=== PATIENT | female | born 1955 | race Caucasian/White ===

== ENCOUNTER 2024-09-12 16:29 | Outpatient (CLI) | payer MEDICARE, OTHER, SELFPAY ==
--- OUTSIDE RECORDS SUMMARY | 2024-09-12 16:48 | XMS_ITS | Patient Health Record ---
Author Organization [facility] Address [address] [place], [place] [id number] Care Team Providers Care Log Getter Name Role Phone JOSE C LESLIE Unavailable [phone] Samir Dangelo Unavailable Unavailable REINA FIELDS Unavailable [phone] REINA العلي Unavailable [phone] PHONG HARTMAN Unavailable [phone] Allergies Allergen (clinical drug ingredient) Drug/Non Drug Allergy documented on EMR Reaction Allergy Type Onset Date Status meperidine Demerol Unknown Drug Allergy Active Tape Unknown Allergy Active Reason For Referral No Information Medications Medication SIG (Take, Route, Frequency, Duration) Notes Start Date End Date Status Clotrimazole 1 % 1 application Externally Twice a day Active Betamethasone Dipropionate 0.05 % 1 application Externally Once a day Active Flovent Diskus Activ e traZODone HCl 50 MG 1 tablet at bedtime as needed Orally Once a day Active Atorvastatin Calcium 40 MG 1 tablet Orally Once a day Active Metoprolol Succinate ER 25 MG 1 tablet Orally Once a day Active Clotrimazole-Betametha sone 1-0.05 % 1 application Externally Twice a day one tube, 30g or largest available 06/15/2024 Active Clotrimazole-Betametha sone 1-0.05 % 1 application Externally Twice a day 12/30/2023 Active Encounters Encounter Location Date Provider Diagnosis [facility] [address] [place], [place] [id number] 12/30/2023 PHONG HARTMAN Tinea pedis B35.3 ; Pain in right toe(s) M79.674 and Pain in left toe(s) M79.675 [facility] [address] [place], [place] [id number] 06/15/2024 REINA SNOOK Ingrowing nail L60.0 ; Tinea pedis B35.3 ; Cellulitis of right toe L03.031 and Pain in right toe(s) M79.674 [facility] [address] [place], [place] [id number] 07/07/2024 REINA OBEDBURG Ingrowing nail L60.0 and Encounter for other specified surgical aftercare Z48.89 [facility] [address] [place], [place] [id number] 07/06/2024 REINA SNOOK Assessments Encounter Date Diagnosis (ICD Code) Assessment Notes Treatment Notes Treatment Clinical Notes Section Notes 12/30/2023 Tinea pedis (ICD-10 - B35.3) The patient was educated why and how the fungal infection evolved in their feet and the patient was given information regarding how to prevent further infection. The patient was told to keep feet dry and change socks. The patient was told to be careful with old shoes and excessive sweating. The patient was educated regarding both OTC and prescription treatments. Continue with lotrisone. 12/30/2023 Pain in right toe(s) (ICD-10 - M79.674) 06/15/2024 Tinea pedis (ICD-10 - B35.3) Tinea Pedis: Tinea pedis (athlete's foot) is a dermatologic fungal infection that typically affects the epidermis and is the most common dermatophyte infection. Tinea pedis is transmitted via direct skin contact, contaminated floors, towels and clothing/shoes and thrives in warm, moist environments. Approximately 26.5 million people are affected annually. Nearly half of these people will suffer from multiple episodes for years. Interdigital tinea pedis presents as erythematous, pruritic, scales or erosions between toes. Weiner-type tinea pedis affects the soles and medial and lateral sides of the feet and often is itchy, hyperkeratotic and flaking. Inflammatory tinea pedis is characterized by pruritic erythematous, painful vesicles or bullae most commonly on the medial foot. Treatment varies from OTC preparations to a large variety of topical and oral medications. Patient education and proper foot hygiene are important components to the successful treatment of this infection. 06/15/2024 Ingrowing nail (ICD-10 - L60.0) Matrixectomy of Nail Border: I discussed various treatment options to the patient for their toenail issue. I discussed removal of the offending nail border and chemical matrixectomy to prevent regrowth. The patient decided on permanent removal of the nail border. The consent was signed and placed in the patients chart and all questions were answered. Following skin prep, the toe was injected with 3ccs of a 1:1 mixture of 0.5% marcaine plain and 1% lidocaine plain. A digital tourniquet was applied and the offending nail border and nail matrix were removed. Three applications of 89% phenol for 30 seconds each, were applied to the nail matrix to prevent regrowth. The digital tourniquet was released and the toe was cleansed with isopropyl alcohol. A dry sterile compressive dressing was applied and the patient was given soaking instructions. The medial border of the right great toe was treated. 07/07/2024 Ingrowing nail (ICD-10 - L60.0) 07/07/2024 Encounter for other specified surgical aftercare (ICD-10 - Z48.89) 06/15/2024 Cellulitis of right toe (ICD-10 - L03.031) Infection Protocol: Patient instructed to observe foot for signs and symptoms of infection, including but not limited to: increased redness and warmth to the area, increased drainage from the area, foul odor, and/or presence of fever/chills/nause a/vomiting. If patient experiences any of the above they are to call the office immediately, if someone is not present in the office then proceed to the nearest ER. 12/30/2023 Pain in left toe(s) (ICD-10 - M79.675) 06/15/2024 Pain in right toe(s) (ICD-10 - M79.674) 07/07/2024 Other I advised the patient that no further treatment is necessary at this time. If the condition should worsen they should call the office. Plan Of Treatment No Information Insurance Providers Payer Name Payer Address Payer Phone Subscriber Number Group Number Insured Name Patient Relationship to Insured Coverage Start Date Coverage End Date Medicare Part [facility] [address] [facility] [place] [phone] [id number] Fey, Je Self - patient is the insured 3 [employer] [address] [facility] [place] [id number] Fejose e, Je Self - patient is the insured
--- OUTSIDE RECORDS SUMMARY | 2024-09-12 16:48 | XMS_ITS ---
Author Organization [facility] Address [address] [place], [place] [phone] Care Team Providers Care Independent Contractor Name Role Phone JOSE C LESLIE Unavailable [phone] Samir Dangelo Unavailable Unavailable REASON FOR VISIT *Nail surgery follow-up Encounters Encounter Location Date Provider Diagnosis [address] [id number] 06/29/2024 JOSE C LESLIE Plan Of Treatment No Information Progress Notes * Daniel WINTERSiDOB:1955 (69 yo F)Acc No.[id number]:06/29/2024 Patient: Je WEI Provider: La LESLIE :1955 A ge:68 Y S ex:Female Date:06/29/2024 Address:[address] [place] [phone] Subjective: * Chief Complaints: * 1 . *Nail surgery follow-up. * Medical History: Objective: * Vitals: Assessment: Plan: * Treatment: * Billing Information: * Visit Code: * Procedure Codes: * Electronic signature of CHRISTI LESLIE DPM on 09/12/2024 at 04:48 PM CDT Sign off status: Pending * Provider: La LESLIE Date: 06/29/2024 Generated for Kyle reyes/Aram/Kelly on: 0 09/12/2024 04:48 PM CDT
[2024-09-12 16:56] LABS: Hematocrit 48.0 % (35.0-42.0); Hemoglobin 15.7 g/dL (11.7-13.8); Mean Corpuscular HGB Conc 32.7 g/dL (32-36); Mean Corpuscular Hemoglobin 31.7 pg (27.0-31.0); Mean Corpuscular Volume 96.8 fL (78.0-102.0); Platelet Count Result 293 K/mm3 (150-420); Red Blood Count 4.96 M/mm3 (4.20-5.40); White Blood Count 9.5 K/mm3 (4.8-10.8)
[2024-09-12 17:56] LABS: Alanine Aminotransferase 34 U/L (6-35); Albumin Level 4.4 g/dL (3.5-5.1); Alkaline Phosphatase 93 U/L (38-126); Anion Gap 4 mmol/L (4-12); Aspartate Amino Transferase 34 U/L (14-36); Bilirubin,Total 0.5 mg/dL (0.2-1.3); Blood Urea Nitrogen 11 mg/dL (7-17); Calcium 9.7 mg/dL (8.4-10.2); Carbon Dioxide 31 mmol/L (22-30); Chloride 104 mmol/L (98-107); Estimated Glomerular Filt Rate > 60; Glucose 103 mg/dL (65-110); Magnesium 2.1 mg/dL (1.6-2.3); Osmolality Calculated 287 mOsm/kg (285-295); Potassium 5.0 mmol/L (3.4-5.0); Sodium 139 mmol/L (137-145); Total Protein 7.0 g/dL (6.3-8.2)
[2024-09-12 18:05] LABS: NT Pro B Type Natriuretic Pept 222 pg/mL (19.9-100)
[2024-09-12 18:13] LABS: Free T4 Free Thyroxine. 1.62 ng/dL (0.78-2.19)
[2024-09-12 18:27] LABS: Thyroid Stimulating Hormone 0.672 uIU/mL (0.465-4.680)
[2024-09-12 18:58] LABS: Free T3 4.84 pg/mL (2.18-3.98)
== END 2024-09-12 16:30 | disposition home or self-care (01) ==
LOC: CHSLAB 16:45
PROVIDERS: PCP Internal Medicine; Visit Provider Internal Medicine
DX: R00.2 Palpitations (principal); I10 Essential (primary) hypertension; R94.31 Abnormal electrocardiogram [ECG] [EKG]; R06.00 Dyspnea, unspecified
CPT/HCPCS: 36415; 80053; 83735; 83880; 84439; 84443; 84481; 85027

== ENCOUNTER 2024-09-22 08:38 | Outpatient (CLI) | payer MEDICARE, OTHER, SELFPAY ==
--- OUTSIDE RECORDS SUMMARY | 2024-09-22 08:43 | XMS_ITS | Patient Health Record ---
Author Organization [facility] Address [address] [place], [place] [phone] Care Team Providers Care Farm Management Agent Name Role Phone JOSE C LESLIE Unavailable [phone] Samir Dangelo Unavailable Unavailable REINA FIELDS Unavailable [phone] REINA العلي Unavailable [phone] PHONG HARTMAN Unavailable [phone] Allergies Allergen (clinical drug ingredient) Drug/Non Drug [...] Diagnosis [facility] [address] [place], [place] [id number] 12/30/2023 PHONG HARTMAN Tinea pedis B35.3 ; Pain in right toe(s) M79.674 and Pain in left toe(s) M79.675 [facility] [address] [place], [place] [id number] 06/15/2024 REINA SNOOK Ingrowing nail L60.0 ; Tinea pedis B35.3 ; Cellulitis of right toe L03.031 and Pain in right toe(s) M79.[address] [facility] [address] [place], [place] [id number] 07/07/2024 REINA OBEDBURG Ingrowing nail L60.0 and Encounter for other specified surgical aftercare Z48.89 [facility] [address] [place], [place] [id number] 07/06/2024 REIAN SNOOK Assessments Encounter Date Diagnosis (ICD Code) [...] erythematous, pruritic, scales or erosions between toes. [place]-type tinea pedis affects the soles and medial [...] Start Date Coverage End Date Medicare Part [facility] [address] [place] [address] [id number] Fey, Je Self - patient is the insured 3 [place] [employer] [address] [facility] [place] [id number] Fejose e, Je Self - patient is the insured
--- OUTSIDE RECORDS SUMMARY | 2024-09-22 08:43 | XMS_ITS ---
Author Organization [facility] Address [address] [place], [place] [phone] Care Team Providers Care Clothing Busheler Name Role Phone JOSE C LESLIE Unavailable [phone] Samir Dangelo Unavailable Unavailable REASON FOR VISIT *Nail surgery follow-up Encounters Encounter Location Date Provider Diagnosis [address] [id number] 06/29/2024 JOSE C LESLIE Plan Of Treatment No Information Progress Notes * Daniel WINTERSiDOB:1955 (69 yo F)Acc No.[id number]:06/29/2024 Patient: Je WEI Provider: La LESLIE :1955 A ge:68 Y S ex:Female Date:06/29/2024 Address:[address] [place] [phone] Subjective: * Chief Complaints: * 1 . *Nail surgery follow-up. * Medical History: Objective: * Vitals: Assessment: Plan: * Treatment: * Billing Information: * Visit Code: * Procedure Codes: * Electronic signature of CHRISTI LESLIE DPM on 09/22/2024 at 08:43 AM CDT Sign off status: Pending * Provider: La LESLIE Date: 06/29/2024 Generated for Kyle reyes/Aram/Michaelitting on: 0 09/22/2024 08:43 AM CDT
--- OUTSIDE RECORDS SUMMARY | 2024-09-22 08:43 | XMS_ITS | Clinical Summary ---
Author Organization [facility] Address [facility] [place] [address] Care Team Providers Care Medical Assistant Per Diem Name Role Phone Samir Dangelo MD Primary Care Provider [phone] Allergies Active Allergy Reactions Criticality Noted Date Comments Amoxicillin-Pot Clavulanate Vomiting 03/10/20 21 Meperidine Nausea and Vomiting Low 04/25/2021 Medications metoprolol succinate ER 25 MG 24 hr tablet Take 25 mg by mouth daily. Active atorvastatin 40 MG tablet Take 40 mg by mouth nightly at bedtime. Active Cetirizine HCl (ZYRTEC ALLERGY) 10 MG Cap Take 1 tablet by mouth daily as needed. 11/07/2012 Active albuterol sulfate HFA 108 (90 Base) MCG/ACT inhaler 02/13/2021 Act jericho FLOVENT HFA 110 MCG/ACT inhaler 03/13/2021 Act jericho mometasone (NASONEX) 50 MCG/ACT nasal spray Nasonex (mometasone) spray,non-ae rosol 50 mcg/actuatio n; 1 spray each nostril once a day ; 0; -Dec-2012; Active 01/03/2013 Active traZODone 50 MG tablet Take 1 tablet by mouth daily. 12/07/2012 Active Active Problems No known active problems Encounters Date Type Department Care Team Description 08/12/2024 10:10 AM CDT - 08/12/2024 11:59 PM CDT Hospital Encounter [facility] [address] [place] [place] [address] Samir Dangelo MD Discharge Disposition: Home or Self Care (Routine Discharge) 08/12/2024 Orders Only [facility] [address] [place] [address] Samir Dangelo MD 08/12/2024 Travel 07/11/2024 2:53 PM CDT - 07/11/2024 11:59 PM CDT Hospital Encounter [facility] [address] [place] [address] Nico Howe, OCCUPATIONAL HEALTH AND SAFETY OFFICER Discharge Disposition: Home or Self Care (Routine Discharge) 07/11/2024 Orders Only [facility] [address] [place] [address] Nico Howe, OCCUPATIONAL HEALTH AND SAFETY OFFICER 07/11/2024 Travel from Last 3 Months Family History Medical History Relation Comments Prostate Cancer Father Relation Status Comments Father Social History Tobacco Use Types Packs/Day Years Used Date Smoking Tobacco: Former Smokeless Tobacco: Never Alcohol Use Standard Drinks/Week Comments Never 0 (1 standard drink = 0.6 oz pur e alcohol) Comments No Sex and Gender Information Value Date Recorded Sex Assigned at Female 08/12/2024 10:10 AM CDT Legal Sex Female 2:43 AM CDT Gender Identity Female 04/24/2021 10:51 AM ASSISTANT PUBLIC DEFENDER Sexual Orientation Not on file Last Filed Vital Signs Vital Sign Reading Time Taken Comments Blood Pressure 120/69 04/25/2021 8:35 AM ASSISTANT PUBLIC DEFENDER Pulse 75 04/25/2021 8:35 AM ASSISTANT PUBLIC DEFENDER Temperature 36.2 C (97.2 F) 04/25/2021 7:02 AM ASSISTANT PUBLIC DEFENDER Respiratory Rate 16 04/25/2021 8:35 AM ASSISTANT PUBLIC DEFENDER Oxygen Saturation 99% 04/25/2021 8:35 AM ASSISTANT PUBLIC DEFENDER Inhaled Oxygen Concentration - - Weight 62.6 kg (138 lb) 04/24/2021 12:46 PM ASSISTANT PUBLIC DEFENDER Height 157.5 cm (5' 2) 04/24/2021 12:46 PM ASSISTANT PUBLIC DEFENDER Body Mass Index 25.24 04/24/2021 12:46 PM ASSISTANT PUBLIC DEFENDER Plan of Treatment Health Maintenance Due Date Last Done Comments DTaP, Tdap and Td Vaccines (1 - Tdap) 1976 Zoster Vaccines (1 of 2) 07/30/2007 Pneumococcal Vaccine: 50+ Years (2 of 2 - PPSV23) 02/21/2019 02/21/2018 Annual Medicare Wellness Visit 2022 Dexa Scan (General) 2022 COVID-19 Vaccine ( season) 2023 Mammogram Screening 01/12/2025 01/12/2023, 10/22/2021, 10/01/2020, Additional history exists Colorectal Cancer Screening Colonoscopy (10 Years) 04/25/2031 04/25/2021, 04/25/2021 RSV Immunization or 60+ Years (1 - 1-dose 75+ series) 2032 Hepatitis C Completed 02/17/2017 Meningococcal B Vaccine Aged Out No l onger eligible based on patient's age to complete this topic Meningococcal Vaccine Aged Out No shey deepak eligible based on patient's age to complete this topic RSV Immunizations Under 20 Months Aged Out No longer eligible based on patient's age to complete this topic Procedures Procedure Name Priority Date/Time Associated Diagnosis Comments BASIC METABOLIC PANEL Routine 08/12/2024 10:27 AM CDT Hyperlipidemia Impaired fasting glucose HEMOGLOBIN, GLYCOSYLATED Routine 08/12/2024 10:27 AM CDT Hyperlipidemia Impaired fasting glucose LIPID PANEL Routine 08/12/2024 10:27 AM CDT Hyperlipidemia Impaired fasting glucose CORONAVIRUS (COVID-19) ANTIGEN Routine 07/11/2024 3:00 PM CDT Cough RESP SYNCYTIAL VIRUS Routine 07/11/2024 3:00 PM CDT Cough INFLUENZA A & B Routine 07/11/2024 3:00 PM CDT Cough MG SCREENING W CASEY DEBBIE DIGI Routine 01/12/2023 10:30 AM CDT Screening mammogram for breast cancer COLONOSCOPY Routine 04/25/2021 7:04 AM ASSISTANT PUBLIC DEFENDER HEPATITIS C ANTIBODY Routine 02/17/2017 7:22 AM ASSISTANT PUBLIC DEFENDER from Last 3 Months or Most Recently Relevant to Health Maintenance Results * (ABNORMAL) HEMOGLOBIN, GLYCOSYLATED (08/12/2024 10:27 AM CDT) HGB A1C 6.0(H) <5.7 % 08/12/2024 7:48 PM CDT [facility] ESTIMATED AVG GLUCOSE 126(H) 74 - 114 MG/DL 08/12/2024 7:48 PM CDT [facility] 08/12/2024 10:2 7 AM CDT us Samir Dangelo MD LABORATORY Final Resul t [facility] [address] [place] [address], [id number] * (ABNORMAL) BASIC METABOLIC PANEL (08/12/2024 10:27 AM CDT) SODIUM S/P/B 140 136 - 145 MMOL/L 08/12/2024 10:44 AM CDT [facility] POTASSIUM S/P/B 3.9 3.5 - 5.1 MMOL/L 08/12/2024 10:44 AM CDT [facility] CHLORIDE S/P/B 104 98 - 107 MMOL/L 08/12/2024 10:44 AM CDT [facility] CO2 32.0 21.0 - 32.0 MMOL/L 08/12/2024 10:44 AM CDT [facility] GLUCOSE 110(H) 70 - 99 MG/DL 08/12/2024 10:44 AM CDT [facility] Comment: FASTING GLUCOSE 100 TO 125 MG/DL IS CONSISTENT WITH IMPAIRED FASTING GLUCOSE. FASTING GLUCOSE >125 MG/DL IS CONSISTENT WITH DIABETES. RANDOM GLUCOSE >200 MG/DL WITH HYPERGLYCEMIC SYMPTOMS IS CONSISTENT WITH DIABETES. PER ADA GUIDELINES BUN 16 6 - 24 MG/DL 08/12/2024 10:44 AM CDT [facility] CREATININE S/P/B 0.76 0.55 - 1.02 MG/DL 08/12/2024 10:44 AM CDT [facility] CALCIUM S/P/B 9.6 8.4 - 10.5 MG/DL 08/12/2024 10:44 AM CDT [facility] ANION GAP 4.0(L) 5.0 - 15.0 MMOL/L 08/12/2024 10:44 AM CDT [facility] OSMOLALITY (CALC) 292 MOSM/KG 025 10:44 AM CDT [facility] Comment:REFERENCE RANGE NOT ESTABLISHED GFR ESTIMATE 86(L) >89 ML/MIN/1. 73 M2 08/12/2024 10:44 AM CDT [facility] GFR NOTES GFR REFERENCE S: 08/12/2024 10:44 AM CDT [facility] Comment: THE ESTIMATED GFR IS CALCULATED USING THE 2020 CKD-EPI EQUATION. THE FOLLOWING CATEGORIES FOR GRADING RENAL FUNCTION ARE RECOMMENDED BY THE INTERNATIONAL SOCIETY OF NEPHROLOGY (KDIGO 2012 CLINICAL PRACTICE GUIDELINE). G1,NORMAL OR HIGH: >89 ml/min/1.73 m2 G2,MILDLY DECREASED: 60-89 ml/min/1.73 m2 G3A,MILDLY TO MODERATELY DECREASED: 45-59 ml/min/1.73 m2 G3B,MODERATELY TO SEVERELY DECREASED: 30-44 ml/min/1.73 m2 G4,SEVERELY DECREASED: 15-29 ml/min/1.73 m2 G5,KIDNEY FAILURE: <15 ml/min/1.73 m2 08/12/2024 10:2 7 AM CDT Samir Dangelo MD LABORATORY Final Resul t [facility] [address] [place] [address], * LIPID PANEL (08/12/2024 10:27 AM CDT) CHOLESTEROL 184 MG/DL 08/12/2024 7:13 PM CDT [facility] Comment:DESIRABLE: <200 TRIGLYCERIDES 118 MG/DL 08/12/2024 7:13 PM CDT [facility] Comment:<150 NORMAL HDL 64 >49 MG/DL 08/12/2024 7:13 PM CDT [facility] LDL-C 96 MG/DL 08/12/2024 7:13 PM CDT [facility] Comment:<100 OPTIMAL VLDL CALCULATION 24 MG/DL 08/13/19 25 7:13 PM CDT [facility] Comment:REFERENCE RANGE NOT ESTABLISHED CHOL/HDL RATIO 2.9 08/12/2024 7:13 PM CDT [facility] Comment:REFERENCE RANGE NOT ESTABLISHED LDL/HDL 1.5 08/12/2024 7:13 PM CDT [facility] Comment:REFERENCE RANGE NOT ESTABLISHED NON HDL CHOLESTEROL 120 MG/DL 08/12/2024 7:13 PM CDT [facility] Comment:REFERENCE RANGE NOT ESTABLISHED 08/12/2024 10:2 7 AM CDT Samir Dangelo MD LABORATORY Final Resul t [facility] [address] [place] [address], [id number] * CORONAVIRUS (COVID-19) ANTIGEN (07/11/2024 3:00 PM CDT) Pathologist [facility] CORONAVIRUS ANTIGEN IA NEGATIVE NEGATIVE 07/11/2024 3:49 PM CDT [facility] Comment: NEGATIVE RESULTS DO NOT RULE OUT SARS-COV-2 INFECTION AND SHOULD NOT BE USED THE SOLE BASIS FOR TREATMENT OR PATIENT MANAGEMENT DECISIONS, INCLUDING INFECTION CONTROL DECISIONS. NEGATIVE RESULTS SHOULD BE CONSIDERED IN THE CONTEXT OF A PATIENT'S RECENT EXPOSURES, HISTORY AND THE PRESENCE OF CLINICAL SIGNS AND SYMPTOMS CONSISTENT WITH COVID 19. THIS TEST HAS BEEN AUTHORIZED BY THE FDA UNDER AN EMERGENCY USE AUTHORIZATION (EUA) FOR USE BY AUTHORIZED LABORATORIES. SPECIMEN TYPE NASAL 07/11/2024 3:20 PM CDT [facility] NASAL NASAL STRUCTURE / Unknown 07/11/2024 3:00 PM CDT us Nico Howe NP MICROBIOLOGY - GENERAL ORDERAB LES Final Result Performing Organization Address City/[facility]/ZIP Co de Phone Number [facility] [address] [place] [address], * INFLUENZA A & B (07/11/2024 3:00 PM CDT) SPECIMEN TYPE (INFLUENZA) NASOPHARYNGEAL SWAB 07/11/2024 3:20 PM CDT [facility] INFLUENZA A NEGATIVE NEGATIVE 07/11/2024 3:49 PM CDT [facility] INFLUENZA B NEGATIVE NEGATIVE 07/11/2024 3:49 PM CDT [facility] Comment: A NEGATIVE RESULT DOES NOT EXCLUDE INFLUENZA VIRUS INFECTION. IF INFLUENZA IS CIRCULATING IN YOUR COMMUNITY, A DIAGNOSIS OF INFLUENZA SHOULD BE CONSIDERED BASED ON A PATIENT'S CLINICAL PRESENTATION AND EMPIRIC ANTIVIRAL TREATMENT SHOULD BE CONSIDERED IF INDICATED. NASOPHARYNGEAL SWAB / Unknown 07/11/2024 3:00 PM CDT us Nico Howe NP MICROBIOLOGY - GENERAL ORDERAB LES Final Result Performing Organization Address City/[facility]/ZIP Co de Phone Number [facility] [address] [place] [address], * RESP SYNCYTIAL VIRUS (07/11/2024 3:00 PM CDT) SPECIMEN TYPE NASOPHARYNGEAL SWAB 07/11/2024 3:20 PM CDT [facility] RSV NEGATIVE NEGATIVE 07/11/2024 3:49 PM CDT [facility] NASOPHARYNGEAL SWAB / Unknown 07/11/2024 3:00 PM CDT us Nico Howe NP MICROBIOLOGY - GENERAL ORDERAB LES Final Result Performing Organization Address City/[facility]/ZIP Co de Phone Number [facility] [address] [place] [address], [place] [phone] * MG SCREENING W CASEY DEBBIE DIGI (01/12/2023 10:30 AM CDT) Anatomical Region Laterality Modality Breast Bilateral Mammography 01/12/2023 12:1 1 PM CDT Narrative 01/12/2023 12:13 PM CDT Examination: Digital screening mammogram with CAD. Clinical history: Asymptomatic patient presents for routine screening. Comparison: 10/22/2021, 10/01/2020, 09/19/2019, 2018. Technique: Bilateral digital mammograms. The exam was interpreted with the use of a computer-aided detection (CAD) system. Additional 3-D tomosynthesis images were acquired. Tissue density: The breast tissue is heterogeneously dense. Findings: The breast tissue is heterogeneously dense. The dense tissue may obscure some lesions mammographically. The denser tissues lie anteriorly. Benign-appearing calcification and benign-appearing intramammary lymph nodes noted. Metallic biopsy marker on the left again evident. No suspicious mass, microcalcification or area of architectural distortion can be identified. From a mammographic standpoint, routine followup in one year would seem adequate. IMPRESSION: No suspicious change since the previous exams. Recommendation: 1: Routine Screening Bilateral in 1 Year Assessment: ACR BI-RADS 2 - BENIGN FINDING(S) Ordered By: SAMIR DANGELO Interpreted By: Laci Cordero MD, 01/12/2023 12:11 PM Samir Dangelo MD MAMMO Final Resul t * Colonoscopy (04/25/2021 7:04 AM ASSISTANT PUBLIC DEFENDER) us Alex Singleton MD GI PROCEDURE ORDERABLES Final Re sult * HEPATITIS C ANTIBODY (02/17/2017 7:22 AM ASSISTANT PUBLIC DEFENDER) HEPATITIS C AB NON-REACTI VE NON-REACT JERICHO 02/18/2017 7:54 AM ASSISTANT PUBLIC DEFENDER [facility] Comment: ANTIBODIES TO HCV NOT DETECTED. DOES NOT EXCLUDE THE POSSIBILITY OF EXPOSURE TO HCV. SERUM OR PLASMA SPECIMEN / Unknown 02/17/2017 7:22 AM ASSISTANT PUBLIC DEFENDER 02/17/2017 7:24 AM ASSISTANT PUBLIC DEFENDER us Generic Conversion Md [facility] Final R esult [facility] [address] [place] [address], [id number] from Last 3 Months or Most Recently Relevant to Health Maintenance Insurance MEDICARE [facility] Care Teams Medical Assistant Per Diem Relationship Specialty Start Date End Date Samir Dangelo MD [address] [place] [phone] PCP - General FAMILY PRACTICE 02/19/19
--- OUTSIDE RECORDS SUMMARY | 2024-09-22 08:43 | XMS_ITS | Encounter Summary ---
Author Organization [facility] Address [facility] [place] [address] Care Team Providers Care Crusher Name Role Phone Samir Dangelo MD Primary Care Provider [phone] Encounter Details Date Type Department Care Team (Late st Contact Info) Description 08/20/2018 Abstract [facility] CONVERSION [address] [place] [address] , Generic Conversion, Social History Tobacco Use Types Packs/Day Years Used Date Smoking Tobacco: Former Comments Unknown Sex and Gender Information Value Date Recorded Sex Assigned at Female 08/12/2024 10:10 AM CDT Legal Sex Female 2:43 AM CDT Gender Identity Female 04/24/2021 10:51 AM ASBESTOS SURVEYOR Sexual Orientation Not on file documented as of this encounter Plan of Treatment Not on file documented as of this encounter Visit Diagnoses Not on filedocumented in this encounter Additional Health Concerns Infection Onset Date Last Indicated Resolved Time COVID-19 Rule Out 12/02/2020 12/02/2020 12/02/2020 8:42 PM CDT COVID-19 Rule Out 12/11/2020 12/11/2020 12/11/2020 10:14 PM CDT COVID-19 Rule Out 12/18/2020 12/18/2020 12/19/2020 8:42 PM CDT COVID-19 Rule Out 12/25/2020 12/25/2020 12/25/2020 7:04 PM CDT COVID-19 Rule Out 01/01/2021 01/01/2021 01/01/2021 7:38 PM CDT COVID-19 Rule Out 01/08/2021 01/08/2021 01/09/2021 7:47 PM CDT COVID-19 Rule Out 01/15/2021 01/15/2021 01/16/2021 7:19 PM CDT COVID-19 Rule Out 01/22/2021 01/22/2021 01/23/2021 8:52 PM ASBESTOS SURVEYOR COVID-19 Rule Out 02/17/2021 02/17/2021 02/18/2021 7:49 PM ASBESTOS SURVEYOR COVID-19 Rule Out 02/26/2021 02/26/2021 02/27/2021 7:49 PM ASBESTOS SURVEYOR COVID-19 Rule Out 03/10/2021 03/10/2021 03/10/2021 8:59 AM ASBESTOS SURVEYOR COVID-19 Rule Out 03/10/2021 03/10/2021 03/10/2021 8:13 PM ASBESTOS SURVEYOR COVID-19 Rule Out 03/19/2021 03/19/2021 03/21/2021 9:57 AM ASBESTOS SURVEYOR COVID-19 Rule Out 03/26/2021 03/26/2021 03/26/2021 7:32 PM ASBESTOS SURVEYOR COVID-19 Rule Out 04/22/2021 04/22/2021 04/23/2021 1:46 AM ASBESTOS SURVEYOR Respiratory Rule Out 07/11/2024 07/11/2024 025 3:49 PM CDT COVID-19 Rule Out 07/11/2024 07/11/2024 07/11/2024 3:49 PM CDT documented as of this encounter Care Teams Crusher Relationship Specialty Start Date End Date Samir Dangelo MD [address] [place] [address] PCP - General FAMILY PRACTICE 02/19/19 documented as of this encounter
--- NOTE | 2024-10-11 09:17 | P.PCNHOL_ITS ---
Holter/Event Monitor Holter/Event Monitor Date of procedure: 09/22/24 Holter/Event Procedure: Event Monitor Indications: Abnormal ECG Conclusion: 1. 11 days event monitor on 09/22/24. 2. Predominant rhythm is sinus rhythm. HR range 52-197 bpm; average 98 bpm. 2. There are rare premature supraventricular complexes, rare supraventricular couplets, and rare supraventricular triplets. There are 5 episodes of supravent ricular tachycardia with fastest at 197 bpm and longest lasting 13 beats. 4. There are rare premature ventricular complexes. No ventricular tachycardia. 5. No significant pauses greater than 3 seconds. 6. Patient reports 2 episodes of symptoms of fluttering, irregular beats which demonstrate sinus tachycardia with HR range 115-125 bpm.
== END 2024-09-22 08:39 | disposition home or self-care (01) ==
PROVIDERS: PCP Internal Medicine; Visit Provider Internal Medicine
DX: R00.2 Palpitations (principal); I10 Essential (primary) hypertension; R94.31 Abnormal electrocardiogram [ECG] [EKG]
CPT/HCPCS: 93246

== ENCOUNTER 2024-10-17 13:03 | Outpatient (CLI) | payer MEDICARE, OTHER, SELFPAY ==
--- NOTE | 2024-10-17 13:09 | ECHO_ITS ---
Patient Info Name: Je Morton Age: 69 years : 1955 Gender: Female Ht: 62 in Wt: 119 lbs BSA: 1.54 m2 HR: 101 bpm BP: 155 / 93 mmHg Technical Quality: Good Exam Date: 10/17/2024 1:11 PM Patient Status: unknown Admit Date: 10/17/2024 Exam Type: CA echo doppler color flow Complete two-dimensional, color flow and Doppler transthoracic echocardiogram is performed. Make Up Worker: Brea Rodrigez Attending Provider: Alvarez Muir MD Summary 1. Complete two-dimensional, color flow and Doppler transthoracic echocardiogram is performed. 2. Left ventricular chamber dimension is normal. 3. Left ventricular systolic function is moderately globally reduced, estimated at 40-45. 4. There is mild concentric increased left ventricular wall thickness. 5. Left ventricular septal wall motion is abnormal with septal motion related to bundle branch block. 6. The left ventricular diastolic function is normal. 7. E/e' 8 is minimally elevated. 8. No pulmonary hypertension, estimated pulmonary arterial systolic pressure is 25 mmHg. Left Ventricle E/e' 8 is minimally elevated. Left ventricular chamber dimension is normal. Left ventricular systolic function is moderately globally reduced, estimated at 40-45. There is mild concentric increased left ventricular wall thickness. Left ventricular septal wall motion is abnormal with septal motion related to bundle branch block. The left ventricular diastolic function is normal. Right Ventricle Right ventricular chamber dimension is normal. Right ventricular systolic function is normal. Left Atria Left atrial chamber dimension is normal. Right Atria Right atrial chamber dimension is normal. Aortic Valve The aortic valve is trileaflet. There is no aortic valve stenosis. There is no aortic valve regurgitation. Pulmonic Valve There is no pulmonic regurgitation. Mitral Valve There is no mitral valve stenosis. There is no mitral valve regurgitation. Tricuspid Valve There is no tricuspid valve regurgitation. No pulmonary hypertension, estimated pulmonary arterial systolic pressure is 25 mmHg. Pericardium/Pleural There is no pericardial effusion. Inferior Vena Cava Normal inferior vena cava with >50% collapse upon inspiration consistent with normal right atrial pressure, 5 mmHg. Aorta The aortic root size at the sinus of Valsalva is normal. Left Ventricular Outflow Tract Name Value Normal LVOT 2D LVOT Diameter 2.0 cm LVOT Doppler LVOT Peak Velocity 104 cm/s LVOT Peak Gradient 4 mmHg LVOT Mean Gradient 2 mmHg LVOT VTI 14 cm LVOT VTI/AV VTI Ratio 0.7 LVOT Stroke Volume 45 ml LVOT CO 4.6 l/min LVOT CI 3.0 l/min/m2 Pulmonic Valve Name Value Normal RVOT Doppler RVOT Peak Velocity 71 cm/s RVOT Peak Gradient 2 mmHg PV Doppler PV Peak Velocity 99 cm/s PV Peak Gradient 4 mmHg Mitral Valve Name Value Normal MV Diastolic Function MV E Peak Velocity 113 cm/s MV A Peak Velocity 2 cm/s MV E/A 71.8 MV Decel Time (PW) 73 ms MV Annular TDI MV E/e' (Septal) 9.2 MV E/e' (Lateral) 7.5 MV E/e' (Average) 8.3 Tricuspid Valve Name Value Normal TV Regurgitation Doppler TR Peak Velocity 226 cm/s TR Peak Gradient 20 mmHg Estimated PAP/RSVP RA Pressure 5 mmHg <=5 PA Systolic Pressure 25 mmHg <36 RV Systolic Pressure 25 mmHg <36 TV Annular TDI TV Lateral Greta s' Velocity 15.0 cm/s >=9.5 Aorta Name Value Normal Ascending Aorta Ao Root Diameter (MM) 3.1 cm Ao Root Diam Index (MM) 2.0 cm/m2 Aortic Valve Name Value Normal AV Doppler AV Peak Velocity 140 cm/s AV Peak Gradient 8 mmHg AV Mean Gradient 4 mmHg AV VTI 20 cm AV Area (Cont Eq VTI) 2.3 cm2 >=3.0 AV Area (Cont Eq Angelito) 2.3 cm2 AV DI (Angelito) 0.75 AV Regurgitation 2D LVOT Area 3.1 cm2 Ventricles Name Value Normal LV Dimensions 2D/MM IVS Diastolic Thickness (2D) 0.9 cm 0.6-1.0 LVID Diastole (2D) 4.4 cm 3.8-5.2 LVIW Diastolic Thickness (2D) 0.9 cm 0.6-0.9 LVID Systole (2D) 3.5 cm 2.2-3.5 LVOT Diameter 2.0 cm LV Mass (2D Cubed) 137.01 g 67.00-162.00 LV Mass Index (2D Cubed) 89 g/m2 43-95 Relative Wall Thickness (2D) 0.42 <=0.42 LV Fractional Shortening/Ejection Fraction 2D/MM LV Fractional Shortening (2D) 22 % 27-45 LV EF (2D Teichholz) 45 % LV Diastolic Volume (4C MOD) 67 ml LV EF (4C MOD) 38 % LV Diastolic Volume (2C MOD) 51 ml LV EF (2C MOD) 38 % LV Diastolic Volume (BP MOD) 60 ml 46-106 LV Diastolic Volume Index (BP MOD) 39 ml/m2 29-61 LV Systolic Volume (BP MOD) 37 ml 14-42 LV Systolic Volume Index (BP MOD) 24 ml/m2 8-24 LV EF (BP MOD) 39 % 54-74 LV Diastolic Length (4C) 8.2 cm LV Systolic Length (4C) 7.3 cm LV Stroke Volume (4C MOD) 25 ml Atria Name Value Normal LA Dimensions LA Dimension (MM) 3.2 cm 2.7-3.8 LA Volume (4C A-L) 34 ml LA Volume (BP A-L) 39 ml RA Dimensions RA Systolic Major [place] Length (4C) 4.7 cm 2.2-2.8 RA Area (4C) 10.4 cm2 <=18.0 Report Signatures
--- OUTSIDE RECORDS SUMMARY | 2024-10-17 13:12 | XMS_ITS ---
Author Organization [facility] Address [address] [place], [place] [address] Care Team Providers Care Squeak Rattle And Leak Repairer Name Role Phone JOSE C LESLIE Unavailable [phone] Samir Dangelo Unavailable Unavailable REASON FOR VISIT *Nail surgery follow-up Encounters Encounter Location Date Provider Diagnosis [address] [id number] 06/29/2024 JOSE C LESLIE Plan Of Treatment No Information Progress Notes * Daniel WINTERSiDOB:1955 (69 yo F)Acc No.[id number]:06/29/2024 Patient: Je WEI Provider: La LESLIE :1955 A ge:68 Y S ex:Female Date:06/29/2024 Address:[address] [place] [phone] Subjective: * Chief Complaints: * 1 . *Nail surgery follow-up. * Medical History: Objective: * Vitals: Assessment: Plan: * Treatment: * Billing Information: * Visit Code: * Procedure Codes: * Electronic signature of CHRISTI LESLIE DPM on 10/17/2024 at 01:12 PM CDT Sign off status: Pending * Provider: La LESLIE Date: 06/29/2024 Generated for Kyle reyes/Aram/Kelly on: 0 10/17/2024 01:12 PM CDT
--- OUTSIDE RECORDS SUMMARY | 2024-10-17 13:12 | XMS_ITS | Encounter Summary ---
Author Organization [facility] Address [facility] [place] [address] Care Team Providers Care Lines Tender Name Role Phone Samir Dangelo MD Primary Care Provider [phone]- [phone] Encounter Details Date Type Department Care Team (Late st Contact Info) Description 08/20/2018 Abstract SFL CONVERSION [address] [place] [address] , Generic Conversion, Social History Tobacco Use Types Packs/Day Years Used Date Smoking Tobacco: Former Comments Unknown Sex and Gender Information Value Date Recorded Sex Assigned at Female 08/12/2024 10:10 AM CDT Legal Sex Female 2:43 AM CDT Gender Identity Female 04/24/2021 10:51 AM OLIVE BRINE TESTER Sexual Orientation Not on file documented as [...] Rule Out 01/22/2021 01/22/2021 01/23/2021 8:52 PM OLIVE BRINE TESTER COVID-19 Rule Out 02/17/2021 02/17/2021 02/18/2021 7:49 PM OLIVE BRINE TESTER COVID-19 Rule Out 02/26/2021 02/26/2021 02/27/2021 7:49 PM OLIVE BRINE TESTER COVID-19 Rule Out 03/10/2021 03/10/2021 03/10/2021 8:59 AM OLIVE BRINE TESTER COVID-19 Rule Out 03/10/2021 03/10/2021 03/10/2021 8:13 PM OLIVE BRINE TESTER COVID-19 Rule Out 03/19/2021 03/19/2021 03/21/2021 9:57 AM OLIVE BRINE TESTER COVID-19 Rule Out 03/26/2021 03/26/2021 03/26/2021 7:32 PM OLIVE BRINE TESTER COVID-19 Rule Out 04/22/2021 04/22/2021 04/23/2021 1:46 AM OLIVE BRINE TESTER Respiratory Rule Out 07/11/2024 07/11/2024 025 3:49 PM CDT COVID-19 Rule Out 07/11/2024 07/11/2024 07/11/2024 3:49 PM CDT documented as of this encounter Care Teams Lines Tender Relationship Specialty Start Date End Date Samir Dangelo MD [address] [address] PCP - General FAMILY PRACTICE 02/19/19 documented as of this encounter
--- OUTSIDE RECORDS SUMMARY | 2024-10-17 13:12 | XMS_ITS | Clinical Summary ---
Author Organization [facility] Address [facility] [place] [address] Care Team Providers Care Supervisor Cutting And Boning Name Role Phone Samir Dangelo MD Primary Care Provider [phone] Allergies Active Allergy Reactions Criticality Noted Date [...] 108 (90 Base) MCG/ACT inhaler 02/13/2021 Act caren FLOVENT HFA 110 MCG/ACT inhaler 03/13/2021 Act caren mometasone (NASONEX) 50 MCG/ACT nasal spray Nasonex (mometasone) spray,non-ae rosol 50 mcg/actuatio n; 1 spray each nostril once a day ; 0; -Dec-2012; Active 01/03/2013 Active traZODone 50 MG tablet Take 1 tablet by mouth daily. 12/07/2012 Active Active Problems No known active problems Encounters Date Type Department Care Team Description 08/12/2024 10:10 AM CDT - 08/12/2024 11:59 PM CDT Hospital Encounter [facility] [address] [place] [address] Samir Dangelo MD Discharge Disposition: Home or Self Care (Routine Discharge) 08/12/2024 Orders Only [facility] [address] [place], [place] [id number] Samir Dangelo MD 08/12/2024 Travel from Last 3 Months Family History [...] CDT Gender Identity Female 04/24/2021 10:51 AM HOLLOCK MAKER Sexual Orientation Not on file Last Filed Vital Signs Vital Sign Reading Time Taken Comments Blood Pressure 120/69 04/25/2021 8:35 AM HOLLOCK MAKER Pulse 75 04/25/2021 8:35 AM HOLLOCK MAKER Temperature 36.2 C (97.2 F) 04/25/2021 7:02 AM HOLLOCK MAKER Respiratory Rate 16 04/25/2021 8:35 AM HOLLOCK MAKER Oxygen Saturation 99% 04/25/2021 8:35 AM HOLLOCK MAKER Inhaled Oxygen Concentration - - Weight 62.6 kg (138 lb) 04/24/2021 12:46 PM HOLLOCK MAKER Height 157.5 cm (5' 2) 04/24/2021 12:46 PM HOLLOCK MAKER Body Mass Index 25.24 04/24/2021 12:46 PM HOLLOCK MAKER Plan of Treatment Health Maintenance Due Date [...] 10:27 AM CDT Hyperlipidemia Impaired fasting glucose MG SCREENING W CASEY DEBBIE DIGI Routine 01/12/2023 10:30 AM CDT Screening mammogram for breast cancer COLONOSCOPY Routine 04/25/2021 7:04 AM HOLLOCK MAKER HEPATITIS C ANTIBODY Routine 02/17/2017 7:22 AM HOLLOCK MAKER from Last 3 Months or Most Recently Relevant to Health Maintenance Results * (ABNORMAL) HEMOGLOBIN, GLYCOSYLATED (08/12/2024 10:27 AM CDT) HGB A1C 6.0(H) <5.7 % 08/12/2024 7:48 PM CDT [facility] ESTIMATED AVG GLUCOSE 126(H) 74 - 114 MG/DL 08/12/2024 7:48 PM CDT [facility] 08/12/2024 10:2 7 AM CDT us Samir Dangelo MD LABORATORY Final Resul t [facility] [address] [place] [address], [id number] * (ABNORMAL) BASIC METABOLIC PANEL (08/12/2024 10:27 AM [facility] [place] SODIUM S/P/B 140 136 - 145 MMOL/L 08/12/2024 10:[address] [facility] POTASSIUM S/P/B 3.9 3.5 - 5.1 MMOL/L 08/12/2024 10:[address] [facility] CHLORIDE S/P/B 104 98 - 107 MMOL/L 08/12/2024 10:[address] [facility] CO2 32.0 21.0 - 32.0 MMOL/L 08/12/2024 10:[address] [facility] GLUCOSE 110(H) 70 - 99 MG/DL 08/12/2024 10:[address] [facility] Comment: FASTING GLUCOSE 100 TO 125 MG/DL IS CONSISTENT WITH IMPAIRED FASTING GLUCOSE. FASTING GLUCOSE >125 MG/DL IS CONSISTENT WITH DIABETES. RANDOM GLUCOSE >200 MG/DL WITH HYPERGLYCEMIC SYMPTOMS IS CONSISTENT WITH DIABETES. PER ADA GUIDELINES BUN 16 6 - 24 MG/DL 08/12/2024 10:[address] [facility] CREATININE S/P/B 0.76 0.55 - 1.02 MG/DL 08/12/2024 10:[address] [facility] CALCIUM S/P/B 9.6 8.4 - 10.5 MG/DL 08/12/2024 10:[address] [facility] ANION GAP 4.0(L) 5.0 - 15.0 MMOL/L 08/12/2024 10:[address] [facility] OSMOLALITY (CALC) 292 MOSM/KG 025 10:[address] [facility] Comment:REFERENCE RANGE NOT ESTABLISHED GFR ESTIMATE 86(L) >89 ML/MIN/1. 73 M2 08/12/2024 10:[address] [facility] GFR NOTES GFR REFERENCE S: 08/12/2024 10:[address] [facility] Comment: THE ESTIMATED GFR IS CALCULATED [...] ml/min/1.73 m2 08/12/2024 10:2 7 AM CDT us Samir Dangelo MD LABORATORY Final Resul t [facility] [address] [place] [id number], * LIPID PANEL (08/12/2024 10:27 AM CDT) CHOLESTEROL 184 MG/DL 08/12/2024 7:13 PM CDT [facility] Comment:DESIRABLE: <200 TRIGLYCERIDES 118 MG/DL 08/12/2024 7:13 PM CDT [facility] Comment:<150 NORMAL HDL 64 >49 MG/DL 08/12/2024 7:13 PM CDT [facility] LDL-C 96 MG/DL 08/12/2024 7:13 PM CDT [facility] Comment:<100 OPTIMAL VLDL CALCULATION 24 MG/DL 08/13/19 25 7:13 PM CDT [facility] Comment:REFERENCE RANGE NOT ESTABLISHED CHOL/HDL RATIO 2.9 08/12/2024 7:13 PM CDT [facility] Comment:REFERENCE RANGE NOT ESTABLISHED LDL/HDL 1.5 08/12/2024 7:13 PM CDT [facility] Comment:REFERENCE RANGE NOT ESTABLISHED NON HDL CHOLESTEROL 120 MG/DL 08/12/2024 7:13 PM CDT [facility] Comment:REFERENCE RANGE NOT ESTABLISHED 08/12/2024 10:2 7 AM CDT Samir Dangelo MD LABORATORY Final Resul t [facility] [address] [place] [address], [id number] * MG SCREENING W CASEY DEBBIE DIGI [...] Resul t * Colonoscopy (04/25/2021 7:04 AM HOLLOCK MAKER) Alex Singleton MD GI PROCEDURE ORDERABLES Final Re sult * HEPATITIS C ANTIBODY (02/17/2017 7:22 AM HOLLOCK MAKER) HEPATITIS C AB NON-REACTI VE NON-REACT CAREN 02/18/2017 7:54 AM HOLLOCK MAKER [facility] Comment: ANTIBODIES TO HCV NOT DETECTED. DOES NOT EXCLUDE THE POSSIBILITY OF EXPOSURE TO HCV. SERUM OR PLASMA SPECIMEN / Unknown 02/17/2017 7:22 AM HOLLOCK MAKER 02/17/2017 7:24 AM HOLLOCK MAKER us Generic Conversion Md [facility] Final R esult [facility] [address] [place] [address], [id number] from Last 3 Months or Most Recently Relevant to Health Maintenance Insurance MEDICARE [facility] Care Teams Supervisor Cutting And Boning Relationship Specialty Start Date End Date Samir Dangelo MD [address] [place] [address] PCP - General FAMILY PRACTICE 02/19/19
--- OUTSIDE RECORDS SUMMARY | 2024-10-17 13:13 | XMS_ITS | Patient Health Record ---
Author Organization [facility] Address [address] [place], [place] [address] Care Team Providers Care Configuration Manager Name Role Phone JOSE C LESLIE Unavailable [phone] Samir Dangelo Unavailable Unavailable REINA FIELDS Unavailable [phone] REINA العلي Unavailable [phone] PHONG HARTMAN Unavailable [phone] Allergies Allergen (clinical drug ingredient) Drug/Non Drug [...] Active Encounters Encounter Location Date Provider Diagnosis [facility] [address] [place], [place] [id number] 12/30/2023 PHONG HARTMAN Tinea pedis B35.3 ; Pain in right toe(s) M79.674 and Pain in left toe(s) M79.675 [facility] [address] [place], [place] [id number] 06/15/2024 REINA SNOOK Ingrowing nail L60.0 ; Tinea pedis B35.3 ; Cellulitis of right toe L03.031 and Pain in right toe(s) M79.674 [facility] [address] [place], [place] [id number] 07/07/2024 REINA OBEDBURG Ingrowing nail L60.0 and Encounter for other specified surgical aftercare Z48.89 [facility] [address] [place], [place] [id number] 07/06/2024 REINA SNOOK Assessments Encounter Date Diagnosis [...] erythematous, pruritic, scales or erosions between toes. [place]-type tinea pedis affects the soles and medial [...] Start Date Coverage End Date Medicare Part [facility] [address] [facility] [place] [address] [id number] Fey, Je Self - patient is the insured 3 [place] [email or web address] [address] [facility] [place] [id number] Fejose e, Je Self - patient is the insured
== END 2024-10-17 13:04 | disposition home or self-care (01) ==
PROVIDERS: PCP Internal Medicine; Visit Provider Internal Medicine
DX: R00.2 Palpitations (principal)
CPT/HCPCS: 93306

== ENCOUNTER 2024-11-15 13:43 | Outpatient (CLI) | payer MEDICARE, OTHER, SELFPAY ==
--- OUTSIDE RECORDS SUMMARY | 2024-06-29 06:20 | XMS_ITS ---
Author Organization [facility] Address [address] [place], [place] [id number] Care Team Providers Care K9 Handler Name Role Phone JOSE C LESLIE Unavailable [phone] Samir Dangelo Unavailable Unavailable REASON FOR VISIT *Nail surgery follow-up Encounters Encounter Location Date Provider Diagnosis [address] [id number] 06/29/2024 JOSE C LESLIE Plan Of Treatment No Information Progress Notes * Daniel WINTERSiDOB:1955 (69 yo F)Acc No.[id number]:06/29/2024 Patient: Je WEI Provider: La LESLIE :1955 A ge:68 Y S ex:Female Date:06/29/2024 Address:[address] [place] [phone] Subjective: * Chief Complaints: * 1 . *Nail surgery follow-up. * Medical History: Objective: * Vitals: Assessment: Plan: * Treatment: * Billing Information: * Visit Code: * Procedure Codes: * Electronic signature of CHRISTI LESLIE DPM on 11/15/2024 at 02:58 PM CDT Sign off status: Pending * Provider: La LESLIE Date: 0 06/29/2024 Generated for Kyle reyes/Aram/Michaelitting on: 0 11/15/2024 02:58 PM CDT
--- NOTE | ~2024-11-15 | NM_ITS ---
EXAMINATION: NM thyroid scan w uptake DATE: 11/16/2024 14:19 INDICATION: Goiter COMPARISON: None. TECHNIQUE: 361 microcuries [id number] was administered orally in capsule form. Scintigraphic images of the thyroid gland were obtained at 24 hours. Thyroid uptake was calculated by the technologist. FINDINGS: The thyroid uptake is 28.4% (normal 10-30%), with the right lobe measuring 17% uptake and the left 11.9%. There is suggestion of a large hyperfunctioning nodule at the mid inferior right thyroid lobe with increased uptake. IMPRESSION: 1. Suggestion of a large hyperfunctioning nodule at the mid inferior right thyroid lobe. Thyroid ultrasound for confirmation and for risk stratification. 2. Otherwise normal thyroid 24-hour iodine uptake. Reviewed, dictated and finalized at location A. IMPRESSION: 1. Suggestion of a large hyperfunctioning nodule at the mid inferior right thy roid lobe. Thyroid ultrasound for confirmation and for risk stratification. 2. Otherwise normal thyroid 24-hour iodine uptake.
--- OUTSIDE RECORDS SUMMARY | 2024-11-15 14:59 | XMS_ITS | Encounter Summary ---
Author Organization [facility] Address [facility] [place] [address] Care Team Providers Care Blast Furnace Checker Name Role Phone Samir Dangelo MD Primary Care Provider [phone]- [phone] Encounter Details Date Type Department Care Team (Late st Contact Info) Description 08/20/2018 Abstract SFL CONVERSION [address] [place] [address] , Generic Conversion, Social History Tobacco Use Types Packs/Day Years Used Date Smoking Tobacco: Former Comments Unknown Sex and Gender Information Value Date Recorded Sex Assigned at Female 08/12/2024 10:10 AM CDT Legal Sex Female 2:43 AM CDT Gender Identity Female 04/24/2021 10:51 AM CONTROLLED ATMOSPHERIC FURNACE BRAZER Sexual Orientation Not on file documented as [...] Rule Out 01/22/2021 01/22/2021 01/23/2021 8:52 PM CONTROLLED ATMOSPHERIC FURNACE BRAZER COVID-19 Rule Out 02/17/2021 02/17/2021 02/18/2021 7:49 PM CONTROLLED ATMOSPHERIC FURNACE BRAZER COVID-19 Rule Out 02/26/2021 02/26/2021 02/27/2021 7:49 PM CONTROLLED ATMOSPHERIC FURNACE BRAZER COVID-19 Rule Out 03/10/2021 03/10/2021 03/10/2021 8:59 AM CONTROLLED ATMOSPHERIC FURNACE BRAZER COVID-19 Rule Out 03/10/2021 03/10/2021 03/10/2021 8:13 PM CONTROLLED ATMOSPHERIC FURNACE BRAZER COVID-19 Rule Out 03/19/2021 03/19/2021 03/21/2021 9:57 AM CONTROLLED ATMOSPHERIC FURNACE BRAZER COVID-19 Rule Out 03/26/2021 03/26/2021 03/26/2021 7:32 PM CONTROLLED ATMOSPHERIC FURNACE BRAZER COVID-19 Rule Out 04/22/2021 04/22/2021 04/23/2021 1:46 AM CONTROLLED ATMOSPHERIC FURNACE BRAZER Respiratory Rule Out 07/11/2024 07/11/2024 025 3:49 PM CDT COVID-19 Rule Out 07/11/2024 07/11/2024 07/11/2024 3:49 PM CDT documented as of this encounter Care Teams Blast Furnace Checker Relationship Specialty Start Date End Date Samir Dangelo MD [address] [place] [address] PCP - General FAMILY PRACTICE 02/19/19 documented as of this encounter
--- OUTSIDE RECORDS SUMMARY | 2024-11-15 14:59 | XMS_ITS | Patient Health Record ---
Author Organization [facility] Address [address] [place], [place] [id number] Care Team Providers Care Clay Caster Name Role Phone JOSE C LESLIE Unavailable [phone] Samir Dangelo Unavailable Unavailable REINA FIELDS Unavailable [phone] REINA العلي Unavailable [phone] PHONG HARTMAN Unavailable [phone] Allergies Allergen (clinical drug ingredient) Drug/Non Drug [...] Active Encounters Encounter Location Date Provider Diagnosis [facility] [address] [place], [place] [id number] 12/30/2023 PHONG HARTMAN Tinea pedis B35.3 ; Pain in right toe(s) M79.674 and Pain in left toe(s) M79.675 [facility] [address] [place], [place] [id number] 06/15/2024 REINA SNOOK Ingrowing nail L60.0 ; Tinea pedis B35.3 ; Cellulitis of right toe L03.031 and Pain in right toe(s) M79.674 [facility] [address] [place], [place] [id number] 07/07/2024 REINA OBEDBURG Ingrowing nail L60.0 and Encounter for other specified surgical aftercare Z48.89 [facility] [address] [place], [place] [id number] 07/06/2024 REINA SNOOK Assessments Encounter Date Diagnosis [...] erythematous, pruritic, scales or erosions between toes. [place]-type tinea pedis affects the soles and medial [...] Start Date Coverage End Date Medicare Part [facility] [address] [place] [address] [id number] Fey, Je Self - patient is the insured 3 [place] [employer] [address] [facility] [place] [facility] [place] [id number] Fejose e, Je Self - patient is the insured
--- OUTSIDE RECORDS SUMMARY | 2024-11-15 14:59 | XMS_ITS | Clinical Summary ---
Author Organization [facility] Address [facility] [place] [address] Care Team Providers Care Refining Engineer Name Role Phone Samir Dangelo MD Primary Care Provider Allergies Active Allergy Reactions Criticality Noted Date [...] Encounters Date Type Department Care Team Description 10/26/2024 10:41 AM CDT - 10/26/2024 11:59 PM CDT Hospital Encounter [facility] [address] [place] [address] Alvarez Trevino MD Discharge Disposition: Home or Self Care (Routine Discharge) 10/26/2024 Travel from Last 3 Months Family History [...] CDT Gender Identity Female 04/24/2021 10:51 AM FIRE CONTROL OFFICER Sexual Orientation Not on file Last Filed Vital Signs Vital Sign Reading Time Taken Comments Blood Pressure 120/69 04/25/2021 8:35 AM FIRE CONTROL OFFICER Pulse 75 04/25/2021 8:35 AM FIRE CONTROL OFFICER Temperature 36.2 C (97.2 F) 04/25/2021 7:02 AM FIRE CONTROL OFFICER Respiratory Rate 16 04/25/2021 8:35 AM FIRE CONTROL OFFICER Oxygen Saturation 99% 04/25/2021 8:35 AM FIRE CONTROL OFFICER Inhaled Oxygen Concentration - - Weight 62.6 kg (138 lb) 04/24/2021 12:46 PM FIRE CONTROL OFFICER Height 157.5 cm (5' 2) 04/24/2021 12:46 PM FIRE CONTROL OFFICER Body Mass Index 25.24 04/24/2021 12:46 PM FIRE CONTROL OFFICER Plan of Treatment Health Maintenance Due Date Last Done Comments DTaP, Tdap and Td Vaccines (1 - Tdap) 1976 Zoster Vaccines (1 of 2) 07/30/2007 Pneumococcal Vaccine: 50+ Years (2 of 2 - PPSV23) 02/21/2019 02/21/2018 Annual Medicare Wellness Visit 2022 Dexa Scan (General) 2022 COVID-19 Vaccine ( - season) 2023 Mammogram Screening 01/12/2025 01/12/2023, 10/22/2021, [...] Procedure Name Priority Date/Time Associated Diagnosis Comments US THYROID Routine 10/26/2024 10:58 AM CDT Goiter MG SCREENING W ACSEY DEBBIE DIGI Routine 01/12/2023 10:30 AM CDT Screening mammogram for breast cancer COLONOSCOPY Routine 04/25/2021 7:04 AM FIRE CONTROL OFFICER HEPATITIS C ANTIBODY Routine 02/17/2017 7:22 AM FIRE CONTROL OFFICER from Last 3 Months or Most Recently Relevant to Health Maintenance Results * US THYROID (10/26/2024 10:58 AM CDT) Anatomical Region Laterality Modality Neck Ultrasound 10/27/2024 2:24 PM CDT Impressions 10/27/2024 2:33 PM CDT IMPRESSION: Thyroid nodules as described without suspicious features. None meet criteria for surveillance. Ordered By: ALVAREZ TREVINO Interpreted By: Laci Cordero MD, 10/27/2024 2:24 PM Narrative 10/27/2024 2:33 PM CDT [address] [place] [address] Examination: Thyroid ultrasound. Exam time: 1047 hours. Clinical history: Follow-up of thyroid nodules. History of benign FNAB/aspiration on the right in 2016. Comparison: 04/14/2021, 02/23/2019, 04/13/2017, 10/08/2016, 02/13/2016, 02/02/2016. Technique: Grayscale and color Doppler images. Findings: Both lobes lie within the broad range of normal for size. The right lobe measures 4.6 x 2 x 2.3 cm. The left lobe measures 4.2 x 1.4 x 1.2 cm. The thickness of the isthmus is normal. There is some heterogeneity in the glandular echotexture. Sharply circumscribed isoechoic mixed solid and cystic nodule in the right lobe measures 2.6 cm in greatest dimension and represents the previously biopsied nodule (TI RADS 2). Sharply circumscribed isoechoic to hypoechoic spongiform nodule in the left lobe measures 1.4 cm in greatest dimension (TI RADS 2). An additional primarily solid sharply circumscribed isoechoic nodule in the left lobe measures 8 mm in greatest dimension (TI RADS 3). No other nodules are identified. No suspicious features are seen. There is no hyperemia on color Doppler. Procedure Note Laci Cordero MD - 10/27/2024 [place] [address] [place] [address] Examination: Thyroid ultrasound. Exam time: 1047 hours. Clinical history: Follow-up of thyroid nodules. History of benignFNAB/aspiration on the right in 2015. Comparison: 04/14/2021, 02/23/2019, 04/13/2017, 10/08/2016, 02/13/2016,02/02/2016. Technique: Grayscale and color Doppler images. Findings: Both lobes lie within the broad range of normal for size. Theright lobe measures 4.6 x 2 x 2.3 cm. The left lobe measures 4.2 x 1.4 x1.2 cm. The thickness of the isthmus is normal. There is someheterogeneity in the glandular echotexture. Sharply circumscribedisoechoic mixed solid and cystic nodule in the right lobe measures 2.6 cmin greatest dimension and represents the previously biopsied nodule (TIRADS 2). Sharply circumscribed isoechoic to hypoechoic spongiform nodulein the left lobe measures 1.4 cm in greatest dimension (TI RADS 2). Anadditional primarily solid sharply circumscribed isoechoic nodule in theleft lobe measures 8 mm in greatest dimension (TI RADS 3). No othernodules are identified. No suspicious features are seen. There is nohyperemia on color Doppler. IMPRESSION: Thyroid nodules as described without suspicious features. None meetcriteria for surveillance. Ordered By: ALVAREZ TREVINO Interpreted By: Laci Cordero MD, 10/27/2024 2:24 PM Alvarez Trevino MD ULTRASOUND Final Result * MG SCREENING W CASEY DEBBIE DIGI [...] Resul t * Colonoscopy (04/25/2021 7:04 AM FIRE CONTROL OFFICER) Alex Singleton MD GI PROCEDURE ORDERABLES Final Re sult * HEPATITIS C ANTIBODY (02/17/2017 7:22 AM FIRE CONTROL OFFICER) HEPATITIS C AB NON-REACTI VE NON-REACT CAREN 02/18/2017 7:54 [address] FIRE CONTROL OFFICER [facility] Comment: ANTIBODIES TO HCV NOT DETECTED. DOES NOT EXCLUDE THE POSSIBILITY OF EXPOSURE TO HCV. SERUM OR PLASMA SPECIMEN / Unknown 02/17/2017 7:22 AM FIRE CONTROL OFFICER 02/17/2017 7:24 AM FIRE CONTROL OFFICER us Generic Conversion Md [facility] Final R esult [facility] [address] [place] [address], [id number] from Last 3 Months or Most Recently Relevant to Health Maintenance Insurance MEDICARE [facility] Care Teams Refining Engineer Relationship Specialty Start Date End Date Samir Dangelo MD [address] [address] PCP - General FAMILY PRACTICE 02/19/19
== END 2024-11-15 13:44 | disposition home or self-care (01) ==
PROVIDERS: PCP Internal Medicine; Visit Provider Internal Medicine
DX: E04.8 Other specified nontoxic goiter (principal)
CPT/HCPCS: 78014; A9516

== ENCOUNTER 2024-12-07 08:15 | Outpatient (CLI) | payer MEDICARE, OTHER, SELFPAY ==
--- OUTSIDE RECORDS SUMMARY | 2024-06-29 06:20 | XMS_ITS ---
Author Organization [facility] Address [address] [place], [place] [id number] Care Team Providers Care Fruit Picker Name Role Phone JOSE C LESLIE Unavailable [phone] Samir Dangelo Unavailable Unavailable REASON FOR VISIT *Nail surgery follow-up Encounters Encounter Location Date Provider Diagnosis [address] [id number] 06/29/2024 JOSE C LESLIE Plan Of Treatment No Information Progress Notes * Daniel WINTERSiDOB:1955 (69 yo F)Acc No.[id number]:06/29/2024 Patient: Je WEI Provider: La LESLIE :1955 A ge:68 Y S ex:Female Date:06/29/2024 Address:[address] [place] [id number] Subjective: * Chief Complaints: * 1 . *Nail surgery follow-up. * Medical History: Objective: * Vitals: Assessment: Plan: * Treatment: * Billing Information: * Visit Code: * Procedure Codes: * Electronic signature of CHRISTI LESLIE DPM on 12/07/2024 at 08:21 AM CDT Sign off status: Pending * Provider: La LESLIE Date: 06/29/2024 Generated for Kyle reyes/Aram/Michaelitting on: 0 12/07/2024 08:21 AM CDT
--- NOTE | ~2024-12-07 | NM_ITS ---
EXAMINATION: NM susanna stress w perfusion DATE: 12/07/2024 11:10 INDICATION: Other forms of dyspnea TECHNIQUE: Rest images were obtained following intravenous administration of 11.4 mCi Tc99m tetrofosmin (Myoview). The patient was infused intravenously with Lexiscan (Regadenoson). Then, 35.0 mCi Tc99m tetrofosmin (Myoview) was administered intravenously, and stress images were obtained, initially in the supine position with repeat post stress imaging obtained in the prone position. Data was reconstructed into short axis and horizontal and vertical long axis SPECT images. Gated SPECT images were also obtained. COMPARISON: None. FINDINGS: There is a mild to moderate severity nonreversible perfusion defect consistent with infarct at the apical septal, apical inferior, mid anteroseptal and mid inferoseptal segments. There is some artifactual decreased activity along the mid and basilar aspect of the inferior wall which normalizes on the post stress imaging obtained in the prone position. There is normal left ventricular chamber size, wall motion and ejection fraction. Left ventricular ejection fraction measures 67%. IMPRESSION: 1. 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 No reversible ischemia. 2. Left ventricular ejection fraction measuring 67%. Reviewed, dictated and finalized at location A. IMPRESSION: 1. 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 No reversible ischem ia. 2. Left ventricular ejection fraction measuring 67%.
--- OUTSIDE RECORDS SUMMARY | 2024-12-07 08:21 | XMS_ITS | Encounter Summary ---
Author Organization [facility] Address [facility] [place] [address] Care Team Providers Care Buttermaker Name Role Phone Samir Dangelo MD Primary Care Provider [phone]- [phone] Encounter Details Date Type Department Care Team (Late st Contact Info) Description 08/20/2018 Abstract SFL CONVERSION [address] [place] [address] , Generic Conversion, Social History Tobacco Use Types Packs/Day Years Used Date Smoking Tobacco: Former Comments Unknown Sex and Gender Information Value Date Recorded Sex Assigned at Female 08/12/2024 10:10 AM CDT Legal Sex Female 2:43 AM CDT Gender Identity Female 04/24/2021 10:51 AM BUSINESS SERVICES CLERK Sexual Orientation Not on file documented as [...] Rule Out 01/22/2021 01/22/2021 01/23/2021 8:52 PM BUSINESS SERVICES CLERK COVID-19 Rule Out 02/17/2021 02/17/2021 02/18/2021 7:49 PM BUSINESS SERVICES CLERK COVID-19 Rule Out 02/26/2021 02/26/2021 02/27/2021 7:49 PM BUSINESS SERVICES CLERK COVID-19 Rule Out 03/10/2021 03/10/2021 03/10/2021 8:59 AM BUSINESS SERVICES CLERK COVID-19 Rule Out 03/10/2021 03/10/2021 03/10/2021 8:13 PM BUSINESS SERVICES CLERK COVID-19 Rule Out 03/19/2021 03/19/2021 03/21/2021 9:57 AM BUSINESS SERVICES CLERK COVID-19 Rule Out 03/26/2021 03/26/2021 03/26/2021 7:32 PM BUSINESS SERVICES CLERK COVID-19 Rule Out 04/22/2021 04/22/2021 04/23/2021 1:46 AM BUSINESS SERVICES CLERK Respiratory Rule Out 07/11/2024 07/11/2024 025 3:49 PM CDT COVID-19 Rule Out 07/11/2024 07/11/2024 07/11/2024 3:49 PM CDT documented as of this encounter Care Teams Buttermaker Relationship Specialty Start Date End Date Samir Dangelo MD [address] [place] [address] PCP - General FAMILY PRACTICE 02/19/19 documented as of this encounter
--- OUTSIDE RECORDS SUMMARY | 2024-12-07 08:21 | XMS_ITS | Clinical Summary ---
Author Organization [facility] Address [facility] [place] [address] Care Team Providers Care Manager Of Creative Services Name Role Phone Samir Dangelo MD Primary [...] - 10/26/2024 11:59 PM CDT Hospital Encounter [facility] [address] [place] [address] Biju Trevino MD Discharge Disposition: Home or Self [...] CDT Gender Identity Female 04/24/2021 10:51 AM ACCOUNTING GENERALIST Sexual Orientation Not on file Last Filed Vital Signs Vital Sign Reading Time Taken Comments Blood Pressure 120/69 04/25/2021 8:35 AM ACCOUNTING GENERALIST Pulse 75 04/25/2021 8:35 AM ACCOUNTING GENERALIST Temperature 36.2 C (97.2 F) 04/25/2021 7:02 AM ACCOUNTING GENERALIST Respiratory Rate 16 04/25/2021 8:35 AM ACCOUNTING GENERALIST Oxygen Saturation 99% 04/25/2021 8:35 AM ACCOUNTING GENERALIST Inhaled Oxygen Concentration - - Weight 62.6 kg (138 lb) 04/24/2021 12:46 PM ACCOUNTING GENERALIST Height 157.5 cm (5' 2) 04/24/2021 12:46 PM ACCOUNTING GENERALIST Body Mass Index 25.24 04/24/2021 12:46 PM ACCOUNTING GENERALIST Plan of Treatment Health Maintenance Due Date Last Done Comments DTaP, Tdap and Td Vaccines (1 - Tdap) 1976 Zoster Vaccines (1 of 2) 07/30/2007 Pneumococcal Vaccine: 50+ Years (2 of 2 - PPSV23) 02/21/2019 02/21/2018 Annual Medicare Wellness Visit 2022 Dexa Scan (General) 2022 COVID-19 Vaccine ( - season) 2024 Mammogram Screening 01/12/2025 01/12/2023, 10/22/2021, 10/01/2020, Additional [...] 10:58 AM CDT Goiter MG SCREENING W CASEY DEBBIE DIGI Routine 01/12/2023 10:30 AM CDT Screening mammogram for breast cancer COLONOSCOPY Routine 04/25/2021 7:04 AM ACCOUNTING GENERALIST HEPATITIS C ANTIBODY Routine 02/17/2017 7:22 AM ACCOUNTING GENERALIST from Last 3 Months or Most Recently Relevant to Health Maintenance Results * US THYROID (10/26/2024 10:58 AM CDT) Anatomical Region Laterality Modality Neck Ultrasound 10/27/2024 2:24 PM CDT Impressions 10/27/2024 2:33 PM CDT IMPRESSION: Thyroid nodules as described without suspicious features. None meet criteria for surveillance. Ordered By: BIJU TREVINO Interpreted By: Laci Cordero MD, 10/27/2024 2:24 PM Narrative 10/27/2024 2:33 PM [address]T [address] [place] [address] Examination: Thyroid ultrasound. Exam time: 1047 hours. [...] Procedure Note Laci Cordero MD - 10/27/2024 [place] [address] [facility] [place] [address] Examination: Thyroid ultrasound. Exam time: 1047 hours. [...] features. None meetcriteria for surveillance. Ordered By: BIJU TREVINO Interpreted By: Laci Cordero MD, 10/27/2024 2:24 PM Biju Trevino MD ULTRASOUND Final Result * MG [...] Resul t * Colonoscopy (04/25/2021 7:04 AM ACCOUNTING GENERALIST) Alex Singleton MD GI PROCEDURE ORDERABLES Final Re sult * HEPATITIS C ANTIBODY (02/17/2017 7:22 AM ACCOUNTING GENERALIST) HEPATITIS C AB NON-REACTI VE NON-REACT JERICHO 02/18/2017 7:54 AM ACCOUNTING GENERALIST [facility] Comment: ANTIBODIES TO HCV NOT DETECTED. DOES NOT EXCLUDE THE POSSIBILITY OF EXPOSURE TO HCV. SERUM OR PLASMA SPECIMEN / Unknown 02/17/2017 7:22 AM ACCOUNTING GENERALIST 02/17/2017 7:24 AM ACCOUNTING GENERALIST us Generic Conversion Md [facility] Final R esult [facility] [address] [place] [address], [id number] from Last 3 Months or Most Recently Relevant to Health Maintenance Insurance MEDICARE [facility] Care Teams Manager Of Creative Services Relationship Specialty Start Date End Date Samir Dangelo MD [address] [place] [address] PCP - General FAMILY PRACTICE 02/19/19
--- OUTSIDE RECORDS SUMMARY | 2024-12-07 08:21 | XMS_ITS | Patient Health Record ---
Author Organization [facility] Address [address] [place], [place] [id number] Care Team Providers Care Licensing Representative Name Role Phone JOSE C LESLIE Unavailable [phone] Samir Dangelo Unavailable Unavailable REINA FIELDS Unavailable [phone] REINA العلي Unavailable [phone] PHONG HARTMAN Unavailable [phone] Allergies Allergen (clinical drug ingredient) Drug/Non Drug [...] Active Encounters Encounter Location Date Provider Diagnosis [facility] [address], [place] [id number] 12/30/2023 PHONG HARTMAN Tinea pedis B35.3 ; Pain in right toe(s) M79.674 and Pain in left toe(s) M79.675 [facility] [address] [place], [place] [id number] 06/15/2024 REINA SNOOK Ingrowing nail L60.0 ; Tinea pedis B35.3 ; Cellulitis of right toe L03.031 and Pain in right toe(s) M79.[address] [facility] [address] [place], [place] [id number] 07/07/2024 REINA OBEDBURG Ingrowing nail L60.0 and Encounter for other specified surgical aftercare Z48.89 [facility] [address] [place], [place] [id number] 07/06/2024 REINA SNOOK Assessments Encounter Date Diagnosis [...] erythematous, pruritic, scales or erosions between toes. Mancos-type tinea pedis affects the soles and medial [...] Start Date Coverage End Date Medicare Part [facility] [address] [facility] [place] [address] [id number] Fey, Je Self - patient is the insured [employer] [address] [facility] [place] [facility] [place] [id number] Fejose e, Je Self - patient is the insured
--- NOTE | 2024-12-07 09:04 | EST_ITS ---
Patient Info Name: Je Morton Age: 69 years : 1955 Gender: Female Ht: 62 in Wt: 115 lbs BSA: 1.51 m2 Exam Date: 12/07/2024 9:04 AM Patient Status: O Admit Date: 12/07/2024 Exam Type: CA stress susanna w NM A regadenoson stress test was performed. Staff Referring Physician: Porfirio Espino DO Attending Provider: Porfirio Espino DO Exercise Technologist: Zeny Bustos Exercise Physician: Porfirio Espino DO Summary 1. 1. Inconclusive lexiscan stress test for ischemic ST changes due to baseline LBBB. 2. 2. Baseline hypertension. 3. 3. Nuclear scan to follow and will be reported separately. Please correlate with it. 4. 4. Patient informed of the above results. Protocol: Lexiscan Stress ECG Details Stage: REST Duration (min): 0 min : 49 sec HR (bpm): 75 SBP (mmHg): 142 DBP (mmHg): 84 Stage: REST Duration (min): 11 min : 5 sec HR (bpm): 80 SBP (mmHg): 142 DBP (mmHg): 84 Stage: STAGE 1 Duration (min): 0 min : 59 sec HR (bpm): 114 SBP (mmHg): 142 DBP (mmHg): 84 Stage: RECOVERY Duration (min): 1 min : 0 sec HR (bpm): 111 SBP (mmHg): 148 DBP (mmHg): 60 Stage: RECOVERY Duration (min): 2 min : 0 sec HR (bpm): 104 SBP (mmHg): 148 DBP (mmHg): 60 Stage: RECOVERY Duration (min): 3 min : 0 sec HR (bpm): 100 SBP (mmHg): 147 DBP (mmHg): 62 Stage: RECOVERY Duration (min): 4 min : 0 sec HR (bpm): 99 SBP (mmHg): 147 DBP (mmHg): 62 Stage: RECOVERY Duration (min): 5 min : 0 sec HR (bpm): 96 SBP (mmHg): 147 DBP (mmHg): 62 Stage: RECOVERY Duration (min): 6 min : 0 sec HR (bpm): 96 SBP (mmHg): 165 DBP (mmHg): 75 Stage: RECOVERY Duration (min): 7 min : 0 sec HR (bpm): 93 SBP (mmHg): 161 DBP (mmHg): 73 Stage: RECOVERY Duration (min): 8 min : 0 sec HR (bpm): 93 SBP (mmHg): 161 DBP (mmHg): 73 Stage: RECOVERY Duration (min): 9 min : 0 sec HR (bpm): 100 SBP (mmHg): 161 DBP (mmHg): 73 Stage: RECOVERY Duration (min): 9 min : 47 sec HR (bpm): 97 SBP (mmHg): 161 DBP (mmHg): 73 Rest HR: 80 bpm Peak HR: 114 bpm Rest Sys BP: 142 mmHg Peak Sys BP: 165 mmHg Max Pred HR: 153 bpm % Max Pred HR: 75 % Target HR: 130 bpm Max RPP: 18,810 bpm*mmHg Termination Reason: Completed protocol Cardiac Symptoms: Shortness of breath Total Time: 1 min : 0 sec Rest Miguel BP: 84 mmHg Peak Miguel BP: 75 mmHg Total Dose: 0.4 mg Resting ECG Sinus rhythm, LBBB. Stress ECG No ST changes. Arrhythmias None. Report Signatures
== END 2024-12-07 08:16 | disposition home or self-care (01) ==
PROVIDERS: PCP Internal Medicine; Visit Provider Internal Medicine Cardiovascular Disease
DX: R06.09 Other forms of dyspnea (principal); R94.39 Abnormal result of other cardiovascular function study
CPT/HCPCS: 78452; 93017; A9502; J2785